=== PATIENT | male | born 1940 | race Caucasian/White ===

== ENCOUNTER 2022-09-15 12:05 | Outpatient (CLI) | payer MEDICARE | END 2022-09-15 12:06 | disposition home or self-care (01) | LOC: CSHCT 12:05 | PROVIDERS: ATTEND Physician Assistant Surgical | DX: S06.6X0S Traumatic subarachnoid hemorrhage without loss of consciousness, sequela (principal); I61.5 Nontraumatic intracerebral hemorrhage, intraventricular; S06.320A Contusion and laceration of left cerebrum without loss of consciousness, initial encounter | CPT/HCPCS: 70450 ==

== ENCOUNTER 2022-09-19 13:32 | Emergency (ER) | payer MEDICARE | END 2022-09-19 17:17 | LOC: CSHERS 13:32 | DX: S00.03XA Contusion of scalp, initial encounter (principal); E11.9 Type 2 diabetes mellitus without complications; F17.220 Nicotine dependence, chewing tobacco, uncomplicated; W01.0XXA Fall on same level from slipping, tripping and stumbling without subsequent striking against object, initial encounter | CPT/HCPCS: 70450; 72125 ==

== ENCOUNTER 2023-09-15 09:08 | Outpatient (CLI) | payer MEDICARE | END 2023-09-15 09:09 | disposition home or self-care (01) | LOC: CSHRAD 09:08 | PROVIDERS: ATTEND Neurological Surgery | DX: S12.112G Nondisplaced Type II dens fracture, subsequent encounter for fracture with delayed healing (principal); M47.812 Spondylosis without myelopathy or radiculopathy, cervical region | CPT/HCPCS: 72050 ==

== ENCOUNTER 2024-01-09 19:15 | Inpatient (IN) | payer MEDICARE ==
[2024-01-09 20:12] LABS: #Basophils 0.1 10x3/uL (0.0-0.2); #Monocytes 1.6 10x3/uL (0.0-1.1); #Neutrophils 13.7 10x3/uL (1.5-8.4); %Basophils 0.5 % (0.0-2.0); %Eosinophils 0.1 % (0.0-6.0); %Lymphocytes 5.8 % (18.0-47.0); %Monocytes 9.9 % (0.0-10.0); Hematocrit 29.9 % (38.8-50.0); Hemoglobin 9.9 g/dL (13.5-17.5); Mean Corpuscular HGB CONC 33.1 g/dL (32.0-36.0); Mean Corpuscular Hemoglobin 31.2 pg (27.0-33.0); Mean Corpuscular Volume 94.3 fl (81.2-95.1); Mean Platelet Volume 9.1 fl (7.4-10.4); Platelet Count 190 10x3/uL (150-450); RBC Distribution Width 16.5 % (11.5-14.5); Red Blood Cell (RBC) Count 3.17 10x6/uL (4.32-5.72); White Blood Cell (WBC) Count 16.4 10x3/uL (3.5-10.5)
[2024-01-09 20:25] LABS: ALT (SGPT) 7 U/L (8-55); AST (SGOT) 11 U/L (5-34); Albumin 3.2 g/dL (3.4-4.8); Alkaline Phosphatase 45 U/L (40-110); Anion Gap 14 mmol/L (10-20); BUN (Urea Nitrogen) 25 mg/dL (8.4-25.7); Bilirubin, Total 0.7 mg/dL (0.2-1.2); Calc. Creatinine Clearance 0 mL/min (70-130); Calcium 7.8 mg/dL (7.8-10.44); Carbon Dioxide 18 mmol/L (23-31); Chloride 104 mmol/L (98-107); Estimated GFR 36; Glucose 118 mg/dL (83-110); Protein, Total 6.2 g/dL (5.8-8.1); Sodium 132 mmol/L (136-145)
[2024-01-09 20:45] LABS: Bilirubin Neg (Negative); Blood, Urine 250 (Negative); Clarity Cloudy (Clear); Glucose, Urine (Dipstick) Normal (Negative); Ketone, Urine Negative (Negative); Leukocyte 500 (Negative); Nitrite Negative (Negative); Protein, Urine (Dipstick) 500 mg/dl (Neg-Trace); Specific Gravity, Urine 1.015 (1.005-1.030); Urobilinogen Normal mg/dL (Less than 2); pH, Urine 6.5 (5.0-9.0)
[2024-01-09 20:58] LABS: Bacteria/HPF 4+ HPF (None Seen); CAUTI Indications for Culture Fever or rigors; Squamous Epithelial 0-3 HPF (0-3); WBC/HPF Greater than 50 HPF (0-3)
[2024-01-09 20:59] LABS: Urine Culture Reflex Yes Yes
[2024-01-09 21:16] LABS: Influenza A by NAA Not Detected (NotDetected); Influenza B by NAA Not Detected (NotDetected); SARS-CoV-2 NAA Rapid Test Not Detected (NotDetected)
[2024-01-09] MEDS ORDERED: cefTRIAXone (ROCEPHIN) 1 GM VIAL ONE (21:18)
[2024-01-09] MEDS ORDERED: Communication Order-Pharmacy FS ONE (23:03)
[2024-01-09 23:25] LABS: Magnesium 1.7 mg/dL (1.6-2.6)
[2024-01-10] MEDS: Sodium Chloride 0.9% 1,000 ML IV SCH (00:30)
[2024-01-10] MEDS: cefTRIAXone\\ROCEPHIN 2 GM in Sodium Chloride 0.9% 100 ML IVPB SCH (01:10)
[2024-01-10] MEDS ORDERED: cefTRIAXone (ROCEPHIN) 2 GM VIAL ONE (01:10)
[2024-01-10] MEDS ORDERED: Magnesium Sulfate/D5W 1 GM/100 ML BAG ONE (03:48)
[2024-01-10] MEDS: Magnesium Sulfate/D5W 1 GM in Premix 1 BAG IVPB SCH (03:50)
[2024-01-10 04:08] LABS: Anion Gap 15 mmol/L (10-20); BUN (Urea Nitrogen) 26 mg/dL (8.4-25.7); Calc. Creatinine Clearance 32 mL/min (70-130); Carbon Dioxide 19 mmol/L (23-31); Chloride 106 mmol/L (98-107); Estimated GFR 36; Glucose 102 mg/dL (83-110); Potassium 3.7 mmol/L (3.5-5.1); Sodium 136 mmol/L (136-145)
[2024-01-10 04:26] LABS: #Basophils 0.1 10x3/uL (0.0-0.2); #Monocytes 1.1 10x3/uL (0.0-1.1); %Basophils 0.5 % (0.0-2.0); %Eosinophils 0.3 % (0.0-6.0); %Lymphocytes 4.9 % (18.0-47.0); %Monocytes 8.7 % (0.0-10.0); %Neutrophils 85.2 % (40.0-75.0); Hematocrit 28.9 % (38.8-50.0); Hemoglobin 9.7 g/dL (13.5-17.5); Mean Corpuscular HGB CONC 33.6 g/dL (32.0-36.0); Mean Corpuscular Hemoglobin 31.5 pg (27.0-33.0); Mean Corpuscular Volume 93.8 fl (81.2-95.1); Mean Platelet Volume 8.8 fl (7.4-10.4); Platelet Count 172 10x3/uL (150-450); RBC Distribution Width 16.4 % (11.5-14.5); Red Blood Cell (RBC) Count 3.08 10x6/uL (4.32-5.72); White Blood Cell (WBC) Count 12.9 10x3/uL (3.5-10.5)
[2024-01-10] MEDS ORDERED: Potassium Chloride 20 MEQ (100 mL) BAG ONE (05:30)
[2024-01-10] MEDS: Potassium Chloride 20 MEQ in Premix 1 BAG IVPB SCH (05:35)
[2024-01-10] MEDS ORDERED: Communication Order-Pharmacy FS PRN (08:22)
[2024-01-10] MEDS ORDERED: Enoxaparin 40 MG (0.4 mL) SYRINGE ONE (08:24)
[2024-01-10] MEDS: Enoxaparin 40 MG (0.4 mL) SYRINGE SC SCH (08:30)
[2024-01-10] MEDS: Acetaminophen 325 MG TAB PO PRN (15:46)
[2024-01-10] MEDS ORDERED: Acetaminophen 325 MG TAB ONE (15:48)
[2024-01-10 21:45] VITALS: BMI 26.9
[2024-01-11] MEDS: Alogliptin 6.25 MG TAB PO SCH (09:27)
[2024-01-11] MEDS: Amlodipine 5 MG TAB PO SCH (09:27)
[2024-01-11] MEDS: Aspirin 81 mg Enteric Coated Tablet PO SCH (09:28)
[2024-01-12 06:51] LABS: Anion Gap 14 mmol/L (10-20); BUN (Urea Nitrogen) 22 mg/dL (8.4-25.7); Calc. Creatinine Clearance 48 mL/min (70-130); Calcium 8.3 mg/dL (7.8-10.44); Carbon Dioxide 17 mmol/L (23-31); Chloride 111 mmol/L (98-107); Estimated GFR 59; Glucose 86 mg/dL (83-110); Potassium 3.7 mmol/L (3.5-5.1); Sodium 138 mmol/L (136-145)
[2024-01-12 06:54] LABS: #Basophils 0.1 10x3/uL (0.0-0.2); #Eosinphils 0.6 10x3/uL (0.0-0.5); #Monocytes 0.5 10x3/uL (0.0-1.1); #Neutrophils 3.7 10x3/uL (1.5-8.4); %Eosinophils 11.1 % (0.0-6.0); %Lymphocytes 15.5 % (18.0-47.0); %Monocytes 8.2 % (0.0-10.0); Hematocrit 29.4 % (38.8-50.0); Hemoglobin 9.6 g/dL (13.5-17.5); Mean Corpuscular HGB CONC 32.7 g/dL (32.0-36.0); Mean Corpuscular Hemoglobin 30.4 pg (27.0-33.0); Mean Platelet Volume 8.8 fl (7.4-10.4); Platelet Count 174 10x3/uL (150-450); RBC Distribution Width 15.4 % (11.5-14.5); Red Blood Cell (RBC) Count 3.16 10x6/uL (4.32-5.72); White Blood Cell (WBC) Count 5.7 10x3/uL (3.5-10.5)
[2024-01-12] MEDS: Meropenem 1 GM in Sodium Chloride 0.9% 100 ML IVPB SCH (17:49)
[2024-01-12] MEDS: Sodium Bicarbonate Tab 325 MG TAB PO SCH (21:19)
[2024-01-13] MEDS: Meropenem 1 GM in Sodium Chloride 0.9% 100 ML IVPB SCH (05:44)
[2024-01-13 07:41] LABS: #Basophils 0.1 10x3/uL (0.0-0.2); #Eosinphils 0.7 10x3/uL (0.0-0.5); #Monocytes 0.5 10x3/uL (0.0-1.1); #Neutrophils 3.7 10x3/uL (1.5-8.4); %Basophils 1.3 % (0.0-2.0); %Eosinophils 12.2 % (0.0-6.0); %Lymphocytes 15.8 % (18.0-47.0); %Monocytes 8.2 % (0.0-10.0); %Neutrophils 62.3 % (40.0-75.0); Hematocrit 30.4 % (38.8-50.0); Mean Corpuscular HGB CONC 32.9 g/dL (32.0-36.0); Mean Corpuscular Hemoglobin 30.7 pg (27.0-33.0); Mean Corpuscular Volume 93.3 fl (81.2-95.1); Platelet Count 198 10x3/uL (150-450); RBC Distribution Width 15.5 % (11.5-14.5); Red Blood Cell (RBC) Count 3.26 10x6/uL (4.32-5.72)
[2024-01-13 08:13] LABS: Anion Gap 14 mmol/L (10-20); BUN (Urea Nitrogen) 21 mg/dL (8.4-25.7); Calc. Creatinine Clearance 49 mL/min (70-130); Calcium 8.6 mg/dL (7.8-10.44); Carbon Dioxide 20 mmol/L (23-31); Chloride 110 mmol/L (98-107); Estimated GFR 60; Glucose 88 mg/dL (83-110); Potassium 3.8 mmol/L (3.5-5.1); Sodium 140 mmol/L (136-145)
[2024-01-13] MEDS: Allopurinol 100 MG TAB PO SCH (09:02)
[2024-01-13] MEDS: Thiamine 100 MG TAB PO SCH (09:04)
[2024-01-14] MEDS: Alogliptin 6.25 MG TAB PO SCH (09:55)
[2024-01-14 10:21] VITALS: TEMP 98
[2024-01-14 13:54] VITALS: BP 122/58
[2024-01-14] MEDS: Fosfomycin 3 GM/Packet PO SCH (14:41)
== END 2024-01-14 17:45 | disposition home or self-care (01) | DRG 698 ==
LOC: CSHERS 19:15 → CSHERHOLD 21:54 → CSHTELE 01-10 18:20 → OBSVTOIN 01-11 10:05
PROVIDERS: ADMIT Family Medicine; ATTEND Internal Medicine
DX: T83.511A Infection and inflammatory reaction due to indwelling urethral catheter, initial encounter (principal); A41.51 Sepsis due to Escherichia coli [E. coli]; G92.8 Other toxic encephalopathy; A41.52 Sepsis due to Pseudomonas; E87.1 Hypo-osmolality and hyponatremia; N17.9 Acute kidney failure, unspecified; E87.20 Acidosis, unspecified; Y84.6 Urinary catheterization as the cause of abnormal reaction of the patient, or of later complication, without mention of misadventure at the time of the procedure; N39.0 Urinary tract infection, site not specified; E11.9 Type 2 diabetes mellitus without complications; M10.9 Gout, unspecified; D64.9 Anemia, unspecified; N18.32 Chronic kidney disease, stage 3b; R29.6 Repeated falls; R31.9 Hematuria, unspecified; Z79.4 Long term (current) use of insulin; Z11.52 Encounter for screening for COVID-19; Z85.46 Personal history of malignant neoplasm of prostate; I25.2 Old myocardial infarction; Z79.899 Other long term (current) drug therapy
CPT/HCPCS: 36415; 36416; 51703; 71045; 80048; 80053; 81001; 83605; 83735; 85025; 87040; 87077; 87086; 87186; 96372; 96374; 96375; 96376; G0378; J0696; J1650; J2185; J3475; J3480; J3490; J7050